=== PATIENT | female | born 1990 | race African-American/Black ===

== ENCOUNTER 2019-04-12 20:43 | Emergency (ER) | payer SELFPAY ==
[~2019-04-12] VITALS: Ht 188 cm; Wt 77.1 kg
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
[2019-04-12] MEDS: LIDOCAINE (700MG/PATCH) PATCH. TD ONE (22:20)
[2019-04-12 22:22] VITALS: BP 134/73
== END 2019-04-12 22:26 | disposition home or self-care (01) ==
LOC: ER 20:43
DX: T33.09XA Superficial frostbite of other part of head, initial encounter (principal); Z88.5 Allergy status to narcotic agent; X31.XXXA Exposure to excessive natural cold, initial encounter; Y93.89 Activity, other specified; Y92.89 Other specified places as the place of occurrence of the external cause; Y99.8 Other external cause status
CPT/HCPCS: 99281